=== PATIENT | female | born 1975 | race Caucasian/White ===

== ENCOUNTER 2022-09-07 18:05 | Outpatient (CLI) | payer OTHER, SELFPAY ==
--- NOTE | 2022-09-07 18:30 | CRLHL7_ITS ---
For Patients: As a result of the Century Cures Act, medical imaging exams and procedure reports are released immediately into your electronic medical record. You may view this report before your referring provider. If you have questions, please contact your health care provider. BILATERAL SCREENING MAMMOGRAM WITH COMPUTER-AIDED DETECTION AND TOMOSYNTHESIS TECHNIQUE: CC and MLO views were obtained. These mammographic images have been obtained using full-field digital technique. These mammographic images were interpreted with the benefit of computer-aided detection. Breast Tomosynthesis was used in this interpretation. COMPARISON FILM: 05/13/15. FINDINGS: There are scattered areas of fibroglandular density IMPRESSION: There is no radiographic evidence for malignancy. ASSESSMENT: BI-RADS Category 2: Benign RECOMMENDATION: Routine screening mammogram in 1 year. A lay language report of this examination will be provided to the patient. Mikal Haynes M.D. Diagnostic Radiologist [email or web address] Transcribed: 6:13 [email or web address] bridges/Dictated by: Mikal Haynes MD @ 09/08/2022 9:28:00 AM (Electronically Signed)
== END 2022-09-07 18:06 | disposition home or self-care (01) ==
LOC: MAMMO 18:08
DX: Z12.31 Encounter for screening mammogram for malignant neoplasm of breast (principal)
CPT/HCPCS: 77063; 77067

== ENCOUNTER 2023-04-08 07:55 | Outpatient (CLI) | payer OTHER, SELFPAY | END 2023-04-08 07:56 | disposition home or self-care (01) | LOC: NFLDREF 04-12 21:28 | PROVIDERS: PCP Physician Assistant Medical; Referring Provider Physician Assistant Medical; Visit Provider Physician Assistant Medical | DX: E78.5 Hyperlipidemia, unspecified (principal); E66.9 Obesity, unspecified | CPT/HCPCS: 80053; 80061; 84443 ==

== ENCOUNTER 2023-12-08 14:07 | Outpatient (CLI) | payer BC, SELFPAY ==
--- NOTE | 2023-12-08 14:40 | CRLHL7_ITS ---
For Patients: As a result of the Century Cures Act, medical imaging exams and procedure reports are released immediately into your electronic medical record. You may view this report before your referring provider. If you have questions, please contact your health care provider. BILATERAL SCREENING MAMMOGRAM WITH COMPUTER-AIDED DETECTION AND TOMOSYNTHESIS TECHNIQUE: CC and MLO views were obtained. These mammographic images have been obtained using full-field digital technique. These mammographic images were interpreted with the benefit of computer-aided detection. Breast Tomosynthesis was used in this interpretation. COMPARISON FILM: 09/07/22, 07/29/21, 05/13/15. FINDINGS: The breasts are almost entirely fatty. IMPRESSION: There is no radiographic evidence for malignancy. ASSESSMENT: BI-RADS Category 1: Negative RECOMMENDATION: Routine screening mammogram in 1 year. A lay language report of this examination will be provided to the patient. Mikal Haynes M.D. Diagnostic Radiologist [email or web address] SP/Dictated by: Mikal Haynes MD @ 12/12/2023 11:08:00 AM (Electronically Signed)
== END 2023-12-08 14:08 | disposition home or self-care (01) ==
PROVIDERS: PCP Physician Assistant Medical; Visit Provider Physician Assistant Medical
DX: Z12.31 Encounter for screening mammogram for malignant neoplasm of breast (principal)
CPT/HCPCS: 77063; 77067

== ENCOUNTER 2024-06-18 07:52 | Outpatient (CLI) | payer OTHER, SELFPAY | END 2024-06-18 07:53 | disposition home or self-care (01) | PROVIDERS: PCP Physician Assistant Medical; Referring Provider Physician Assistant Medical; Visit Provider Physician Assistant Medical | DX: E78.2 Mixed hyperlipidemia (principal); E66.9 Obesity, unspecified; I10 Essential (primary) hypertension; N91.2 Amenorrhea, unspecified | CPT/HCPCS: 80053; 80061; 84443 ==